=== PATIENT | male | born 1985 | race Caucasian/White ===

== ENCOUNTER → 2024-02-19 14:52 | Outpatient (REF) | payer OTHER, SELFPAY | LOC: RAD 14:52 | PROVIDERS: ATTENDING PHYSICIAN Nurse Practitioner Family | DX: S99.922A Unspecified injury of left foot, initial encounter (principal) | CPT/HCPCS: 73630 ==

== ENCOUNTER → 2024-03-11 10:58 | Outpatient (REF) | payer OTHER, SELFPAY | LOC: RAD 10:58 | PROVIDERS: ATTENDING PHYSICIAN Family Medicine | DX: M54.2 Cervicalgia (principal) | CPT/HCPCS: 72050 ==

== ENCOUNTER 2024-03-30 14:13 | Outpatient (RCR) | payer OTHER, SELFPAY | END 2024-03-30 23:59 | disposition home or self-care (01) | LOC: RPT 14:13 | PROVIDERS: ATTENDING PHYSICIAN Family Medicine | DX: M54.2 Cervicalgia (principal); Z73.6 Limitation of activities due to disability | CPT/HCPCS: 97110; 97112; 97161 ==

== ENCOUNTER 2024-04-28 15:55 | Outpatient (RCR) | payer OTHER, SELFPAY | END 2024-04-28 23:59 | disposition home or self-care (01) | LOC: RPT 15:55 | PROVIDERS: ATTENDING PHYSICIAN Family Medicine | DX: M54.2 Cervicalgia (principal); Z73.6 Limitation of activities due to disability | CPT/HCPCS: 97010; 97110; 97112; 97140 ==

== ENCOUNTER 2024-06-06 11:12 | Emergency (ER) | payer OTHER, SELFPAY ==
[2024-06-06 11:12] VITALS: BMI 33.1
[2024-06-06 11:17] VITALS: BP 101/72
--- NOTE | 2024-06-06 11:28 | ED.GENMED ---
History of Present Illness
<ADALI Lovelace Last Filed: 06/06/24 14:22>
General
Chief Complaint: Musculo-Skeletal Complaint
Source: patient
Exam Limitations: none
Time Seen by Provider: 06/06/24 11:26
Nursing documentation reviewed up to this point in time: agreed with
History of Present Illness
History of Present Illness:
39-year-old male with past medical history UC, eczema, migraines presents emergency department today with concerns of finger amputation. Patient reports that he was working at home cutting wood with a circular saw when he accidentally ran the saw
over his finger. He does not take a blood thinner. His arrives with amputated fingertip on ice. He currently notes severe pain. He did not loose consciousness. He denies any other injuries.
Review of Systems
<ADALI Lovelace Last Filed: 06/06/24 14:22>
Review of Systems
All Other Systems: ROS reviewed and negative except as documented in HPI and ROS
Phy Exam
<ADALI Lovelace Last Filed: 06/06/24 14:22>
Physical Exam
Physical Exam:
General: Patient is well appearing and in no acute distress; non-toxic
Skin: Laceration/avulsion noted to right index finger
Head: Normocephalic, atraumatic
Eyes: Sclera non-icteric. EOMs intact.
Cardiac: Regular rate
Pulm: Normal respiratory effort
Musculoskeletal: Fingertip amputation just proximal to dip of right index finger.
Neuro: CN II-XII intact, no focal neurologic deficits.
Psychiatric: Appropriate mood and affect.
Course
<ADALI Lovelace Last Filed: 06/06/24 14:22>
Orders/Labs/Results
Orders:
Orders
06/06/24 11:27
0.9% Sodium Chloride 500 ml [Nss] 500 ml IV BOLUS
HYDROmorphone [Dilaudid] 0.5 mg IV NOW STA
Ondansetron Injectable [Zofran] 4 mg IV NOW STA
06/06/24 11:33
CR Finger(s)/thumb Min 2 Vw Rt Stat
Comment: Portable
Reason For Exam: injury/amputation to R index finger
Indicate Which Finger:: Index Finger
06/06/24 12:42
HYDROmorphone [Dilaudid] 1 mg IV NOW STA
06/06/24 12:44
CeFAZolin 2 GRAM [Ancef] 2 grams in 10 ml IV NOW
Vital Signs
Initial and Last Documented VS:
Initial Vital Signs
Temp Pulse Resp BP Pulse Ox
98.0 F 52 20 101/72 97
06/06/24 11:17 06/06/24 11:17 06/06/24 11:17 06/06/24 11:17 06/06/24 11:17
Last Documented Vital Signs
Temp Pulse Resp BP Pulse Ox
98.0 F 73 20 97/81 99
06/06/24 11:17 06/06/24 12:30 06/06/24 11:17 06/06/24 12:00 06/06/24 12:30
<Rah Marie, DO - Last Filed: 06/06/24 13:16>
Orders/Labs/Results
Orders:
Orders
06/06/24 11:27
0.9% Sodium Chloride 500 ml [Nss] 500 ml IV BOLUS
HYDROmorphone [Dilaudid] 0.5 mg IV NOW STA
Ondansetron Injectable [Zofran] 4 mg IV NOW STA
06/06/24 11:33
CR Finger(s)/thumb Min 2 Vw Rt Stat
Comment: Portable
Reason For Exam: injury/amputation to R index finger
Indicate Which Finger:: Index Finger
06/06/24 12:42
HYDROmorphone [Dilaudid] 1 mg IV NOW STA
06/06/24 12:44
CeFAZolin 2 GRAM [Ancef] 2 grams in 10 ml IV NOW
Vital Signs
Initial and Last Documented VS:
Initial Vital Signs
Temp Pulse Resp BP Pulse Ox
98.0 F 52 20 101/72 97
06/06/24 11:17 06/06/24 11:17 06/06/24 11:17 06/06/24 11:17 06/06/24 11:17
Last Documented Vital Signs
Temp Pulse Resp BP Pulse Ox
98.0 F 73 20 97/81 99
06/06/24 11:17 06/06/24 12:30 06/06/24 11:17 06/06/24 12:00 06/06/24 12:30
Joannelt;Swati Carl PA-C - Last Filed: 06/06/24 14:22>
MDM/Problems Addressed
Differential Diagnosis Includes:
phalanx fracture, skin avulsion, finger tip amputation
MDM/Problems Addressed:
39-year-old male with past medical history UC, eczema, migraines presents emergency department today with concerns of finger amputation. On exam, he has amputation just proximal to the DIP right second digit. I spoke to Dr. Mitchell who states that
at this level, no reimplantation is indicated, he recommends putting Xeroform dressing and protective gauze and splint on. Patient and family did want second opinion. Did speak to hand surgeon at [facility] who states that he will not reimplant
something at that level. Family and patient are okay with following up with Dr. Mitchell. Dr. Nino states that they will be able to get patient into the office tomorrow. I did apply a bulky dressing in patient's pain was treated here, he received
2 g of Ancef through the IV. Did send Keflex to the pharmacy. Patient is requesting something stronger at home to use for breakthrough pain. Did discuss benefits and risks of opioids, did send Percocets to his pharmacy. Patient stable for
discharge.
Chronic conditions affecting care:
UC, migraines, eczema
Acute Exacerbation and/or Progression of Chronic Illness:
n/a
<Swati Carl PA-C - Last Filed: 06/06/24 14:22>
*Pulse Oximetry
Patient hypoxic: no
*Critical Care Note
Total Time (30-74mins, 75-104mins- exclusive of procedures): Not Applicable
Data Reviewed
Review of Other/Old Records Reveals: Records (Reviewed [facility], no prior ER physician documentation to review) and Discharge Summary (No discharge summaries in [facility] to review)
Source: patient and records
Prescriptions/Medications Considered But Not Given:
n/a
<Swtai Carl PA-C - Last Filed: 06/06/24 14:22>
Patient Management
Escalation/DeEscalation of care consider admission/obs:
Admit not indicated, patient stable for discharge
ED Attending Note
<ADALI Lovelace Last Filed: 06/06/24 14:22>
-
Portions of this chart may have been created with voice recognition software.� Occasional wrong word or��sound alike� substitutions may have occurred due to the inherent limitations of voice recognition software.
<Rah Marie DO - Last Filed: 06/06/24 13:16>
ED Attending Note
Patient seen and examined by attending physician: Yes
I performed the substantive portion of visit, reviewed & personally made and approve the management plan that is documented in note by myself or SANDRA.: Yes
I performed a history and physical exam of patient and discussed management with resident, I reviewed resident's note and agree with documented findings and plan of care.: Yes
ED Attending Note:
I evaluated the patient at bedside�amputation at and just proximal to the DIP right second digit. He is right-handed. Dr. Mitchell gave recommendations. Also, at family request we also spoke to Y[facility].
Discharge Plan
Departure
Patient Disposition: Home (Routine Discharge)
Date of Disposition: 06/06/24
Time of Disposition: 13:56
Patient with high blood pressure during this ER visit?: No
Condition: Good
Discharge Problem:
Amputation of finger of right hand
Instructions: Amputation of the Finger or Fingertip
Prescriptions:
New
cephalexin 500 mg capsule
500 mg PO QID 5 Days Qty: 20 0RF
oxycodone-acetaminophen [Percocet] 5-325 mg tablet
1 tab PO Q6HPRN PRN (Reason: pain) Qty: 8 0RF
Referrals:
Solomon Moreira MD [Family Provider] -
Silviano Mitchell MD [Active] - Call in 1-3 days for appt
Activity Restrictions/Additional Instructions:
You should receive a call from Dr. Mitchell's office today. Please call the office to confirm your appointment for tomorrow.
The antibiotic has been sent to your pharmacy, you can start taking this tomorrow.
Please take ibuprofen as needed for pain, should you have breakthrough pain, you can take a Percocet.
Please return to the emergency department should you experience fevers or chills, chest pain, shortness of breath, or any other signs or symptoms concerning
Interventions
Interventions:
*Risk Screen - Suicide Last Done: 06/06/24 11:17
*General Assessment Last Done: 06/06/24 11:17
*Neglect/Abuse Screening Last Done: 06/06/24 11:17
ED- Fall Risk Assessment Last Done: 06/06/24 11:38
*ED COVID-19 Vaccine History Last Done: 06/06/24 11:17
*Nursing Disposition Last Done: 06/06/24 14:11
ED-Musculoskeletal Assessment Last Done: 06/06/24 11:32
Discharge Date and Time
Discharge Date/Time: 06/06/24 14:12
Print Language: UZBEK
[2024-06-06] MEDS: ZOFRAN 4 MG IV (11:30)
[2024-06-06] MEDS: NSS 500 IV (11:31)
[2024-06-06] MEDS: DILAUDID 0.5 MG IV (11:31)
[2024-06-06 12:00] VITALS: BP 97/81
[2024-06-06] MEDS: ANCEF 10 IV (12:49)
[2024-06-06] MEDS: DILAUDID 1 MG IV (12:49)
== END 2024-06-06 14:12 | disposition home or self-care (01) ==
LOC: EMR 11:12
PROVIDERS: EMERGENCY PHYSICIAN Emergency Medicine; FAMILY PHYSICIAN Family Medicine
DX: S68.610A Complete traumatic transphalangeal amputation of right index finger, initial encounter (principal); W31.2XXA Contact with powered woodworking and forming machines, initial encounter; G43.909 Migraine, unspecified, not intractable, without status migrainosus; L30.9 Dermatitis, unspecified
CPT/HCPCS: 96374; 96375; 96376; 96361; 99284; 73140

== ENCOUNTER 2024-07-22 10:11 | Outpatient (RCR) | payer OTHER, SELFPAY | END 2024-07-22 23:59 | disposition home or self-care (01) | LOC: ROT 10:11 | PROVIDERS: ATTENDING PHYSICIAN Orthopaedic Surgery Hand Surgery; FAMILY PHYSICIAN Family Medicine | DX: S68.110D Complete traumatic metacarpophalangeal amputation of right index finger, subsequent encounter (principal); X58.XXXD Exposure to other specified factors, subsequent encounter; Z73.6 Limitation of activities due to disability | CPT/HCPCS: 97010; 97166; 97535 ==

== ENCOUNTER 2024-08-26 16:01 | Outpatient (RCR) | payer OTHER, SELFPAY | END 2024-08-27 07:39 | disposition home or self-care (01) | LOC: ROT 16:01 | PROVIDERS: ATTENDING PHYSICIAN Orthopaedic Surgery Hand Surgery; FAMILY PHYSICIAN Family Medicine | DX: S68.110D Complete traumatic metacarpophalangeal amputation of right index finger, subsequent encounter (principal); X58.XXXD Exposure to other specified factors, subsequent encounter; Z73.6 Limitation of activities due to disability | CPT/HCPCS: 97018; 97022; 97110; 97140 ==

== ENCOUNTER → 2025-06-16 17:16 | Outpatient (REF) | payer OTHER, SELFPAY | LOC: RAD 17:16 | PROVIDERS: ATTENDING PHYSICIAN Family Medicine | DX: M54.50 Low back pain, unspecified (principal) | CPT/HCPCS: 72110 ==

== ENCOUNTER 2025-07-10 10:22 | Emergency (ER) | payer OTHER, SELFPAY ==
[2025-07-10 10:23] VITALS: BP 135/88
[2025-07-10 11:00] VITALS: BMI 33.6
[2025-07-10 11:22] LABS: Hematocrit 39.9 % (39.0-52.0); Hemoglobin 13.9 g/dL (13.0-18.0); Mean Corp Hgb Conc. 34.8 g/dL (33.0-37.0); Mean Corpuscular Volume 82.8 fL (80.0-94.0); Nucleated Red Blood Cells % 0 % (-); Platelet Count 281 10^3/uL (130-400); Red Cell Dist. Width 12.2 % (11.5-14.5)
[2025-07-10 11:36] LABS: ALT (SGPT) 42 U/L (0-50); AST (SGOT) 24 U/L (17-59); Albumin 4.7 g/dl (3.5-5.0); Alkaline Phosphatase 57 U/L (38-126); Blood Urea Nitrogen 10 mg/dl (9-20); Calcium 10.1 mg/dl (8.4-10.2); Carbon Dioxide 30 mmol/L (22-30); Chloride 103 mmol/L (98-107); Estimated Creatinine Clearance > 125 ml/min; Glucose 146 mg/dl (70-99); Potassium 4.6 mmol/L (3.5-5.1); Sodium 138 mmol/L (135-145); Total Protein 8.1 g/dl (6.3-8.2); eGFR > 60.00
[2025-07-10] MEDS: NSS 1000 IV (11:59)
[2025-07-10 12:00] VITALS: BP 128/82
[2025-07-10] MEDS: TORADOL 30 MG IV (12:00)
[2025-07-10 12:21] LABS: Urine Character Clear (Clear)
[2025-07-10 12:32] LABS: Urine White Cell None Seen /HPF (0-5)
--- NOTE | 2025-07-10 12:56 | ED.GENMED ---
History of Present Illness
General
Chief Complaint: Abdominal Pain
Source: patient
Time Seen by Provider: 07/10/25 11:12
Nursing documentation reviewed up to this point in time: agreed with
History of Present Illness
History of Present Illness:
see MDM
Phy Exam
Physical Exam
Physical Exam:
GENERAL: Alert , in no apparent distress, patient looks rather well
EYE: pupils equal and reactive
NECK: Supple
ENT: o/p clr, mmm.
CARDIAC: Regular rate and rhythm .
LUNGS: Clear breath sounds bilaterally, no acute respiratory distress, no wheezes/rales/rhonchi
ABDOMEN: Soft, mild upper abdominal tenderness, no r/g, no cvat, normal bowel sounds
Back: No midline tenderness, no CVA tenderness, full painless range of motion
NEUROLOGICAL: Alert and oriented, no focal neuro deficits
SKIN: Warm and dry, skin intact.
MUSCULOSKELETAL: No edema, well perfused. neg madie's sign
PSYCH: Normal and appropriate interaction.
Course
Orders/Labs/Results
Orders:
Orders
07/10/25 10:58
CBC/With Diff [Complete Blood Count/With Diff] Urgent
Comprehensive Metabolic Panel Urgent
Urinalysis Reflex To Culture Urgent
Date Specimen was Collected: 07/10/25
Time Specimen was Collected: 10:57
Urine Microscopic Reflex Cult Urgent
Urine Culture Urgent
GRAZYNA Source: U
Specimen Description:
Date Specimen was Collected: 07/10/25
Time Specimen was Collected: 10:57
07/10/25 11:48
CT Abd/Pel (IV only)-DH only Urgent
Comment:
Reason For Exam: abd pain, bloody diarrhea, UC
0.9% Sodium Chloride 1000 ml [Nss] 1,000 ml IV BOLUS
Ketorolac [Toradol] 30 mg IV NOW STA
Abnormal Lab Results
12/07/25
10:58
Glucose 146 H mg/dl
(70-99)
Ur Occult Blood Reflex 4+ A
(Negative)
Urine RBC 7-10 A /HPF
(0-2)
Urine Bacteria (Reflex) Many A
(Negative)
Urine Albumin (Reflex) 1+ A
(Neg - Trace)
07/10/25 10:58
07/10/25 10:58
Vital Signs
Initial and Last Documented VS:
Initial Vital Signs
Temp Pulse Resp BP Pulse Ox
36.9 C 93 20 135/88 99
07/10/25 10:23 07/10/25 10:23 07/10/25 10:23 07/10/25 10:23 07/10/25 10:23
Last Documented Vital Signs
Temp Pulse Resp BP Pulse Ox
36.9 C 68 18 128/82 99
07/10/25 10:23 07/10/25 13:42 07/10/25 13:42 07/10/25 13:42 07/10/25 13:42
MDM/Problems Addressed
Differential Diagnosis Includes:
see MDM
MDM/Problems Addressed:
Note:
CHIEF COMPLAINT(S)
Intermittent abdominal and back pain with decreased bowel movements.
HISTORY OF PRESENT ILLNESS
The patient is a 40-year-old male with a history of ulcerative colitis for over 20 years, presenting with intermittent abdominal and back pain for the past six weeks. Initially, the patient experienced testicular discomfort which coincided with a
colitis flare-up, characterized by blood in stool and slight cramping, which had not occurred in approximately eight to ten years. He also experienced muscle cramping and intense back pain during his commute, reaching a severity of ten out of ten,
prompting an emergency visit to [facility]. A contrast CT scan did not reveal any significant findings, and although blood work showed no signs of infection, antibiotics were prescribed for presumed infection in urine.
Recently, the patient reports varying locations of back pain, affecting his mid and lower back and shoulder blades, with certain movements exacerbating discomfort. The back pain sometimes radiates towards the buttocks, described as a 'really good
scratch' sensation. Despite correcting his posture and attending physical therapy for prior neck spasms, the patient continues to experience migratory back pain. Additionally, the patient describes a recent episode with cramping mid-belly pain,
distinct from his usual colitis pain, leading to stress on a potential blockage due to infrequent bowel movements.
The patient attempted self-medication with prednisone (50 mg on two occasions without consultation) to manage his colitis symptoms during stressful events, leading to some relief but noted slowed bowel activity. His last bowel movement was reported
as difficult and infrequent compared to his usual schedule. Blood remains present in the stool, with its appearance sometimes separate from stool or with mucus.
The patient is on Entyvio for ulcerative colitis for eight to ten years. He has a history of imaging showing arthritis in his back, though no specific degeneration or new findings have been detailed. He denies fever and significant radiation down
the legs. The pain is less severe at rest (rated two out of ten) and responds variably to motions such as bending and pressing tasks.
SOCIAL HISTORY
- The patient mentions stress related to a recent court hearing where he had to pull an all-nighter, potentially contributing to his back issues. He works as a teacher, requiring both sedentary sitting and standing.
PHYSICAL EXAM
- Nursing notes reviewed and vital signs reviewed.
- General: The patient is alert and oriented.
- Musculoskeletal: Tenderness in the lower back, especially in areas corresponding to sacrum and near pelvic joints.
- Abdominal: Palpation reveals mild tenderness in the mid-belly.
PROBLEM LIST
- Acute: Abdominal pain, possibly related to colitis flare; Back pain with spasms; Reduced bowel movements and constipation.
- Chronic: Ulcerative colitis.
PLAN
- Blood work to evaluate organ function and inflammation markers.
- Urinalysis to rule out urinary-related issues.
- Imaging, potentially from mid-chest to pelvis, to assess any abdominal pathology.
- Consultation with gastroenterology for further management of ulcerative colitis and consideration of treatment adjustments.
- Due consideration of pain control options with non-sedating medications like Toradol (if patient desires).
- Monitoring bowel movements, encouraging fluid intake, and dietary modifications as necessary.
DIFFERENTIAL DIAGNOSIS
The Differential Diagnosis includes, in no particular order and is not limited to:
1. Ulcerative colitis flare-up
2. Mechanical back pain or strain
3. Sacroiliitis
4. Possible bowel obstruction or ileus
5. Arthritis of the spine (spondyloarthropathy)
6. Renal colic
7. Abdominal aortic aneurysm
8. Muscular spasms or strain
9. Degenerative disc disease
10. Infectious enterocolitis
CARE-UPDATE
07/10/25 - 13:
labs returned normal, with white counts and kidney function within normal limits, and liver enzymes are also unremarkable. However, urine analysis indicated trace microscopic blood present, suggesting the need for a urologist consultation to rule
out any underlying causes. Current CT scan reveals mild colitis with thickening in the descending colon�more indicative of a colitis flare than an infectious cause, pending stool study results. i spoke with [facility] dr. sweeney who recommended:
Tramodol has been prescribed for pain management, being only slightly stronger than [id number] options, as a precaution. There is also a note regarding gallbladder sludge, with advice to monitor for symptoms post-meal that might suggest
gallbladder involvement, though no immediate action is warranted. Physical therapy has been referred for adjunctive management of discomfort; however, it is advised to reassess its benefit following colitis treatment with steroids. Immediate
attention required if symptoms like worsening diarrhea, blood in stool, recurrent vomiting, severe pain, or fever develop. Prescription will be sent to [facility] in [place].
*Pulse Oximetry
SaO2: 99
Oxygen Mode of Delivery: Room air
Patient hypoxic: no (99)
*Critical Care Note
Total Time (30-74mins, 75-104mins- exclusive of procedures): Not Applicable
ED Attending Note
-
Portions of this chart may have been created with voice recognition software.� Occasional wrong word or��sound alike� substitutions may have occurred due to the inherent limitations of voice recognition software.
Discharge Plan
Departure
Patient Disposition: Home (Routine Discharge)
Date of Disposition: 07/10/25
Time of Disposition: 13:07
Patient with high blood pressure during this ER visit?: Yes
Condition: Fair
Covid-19: Not Applicable
Discharge Problem:
Ulcerative colitis
Instructions: Ulcerative colitis in adults
Prescriptions:
New
tramadol 50 mg tablet
50 mg PO Q8H PRN (Reason: Pain) Qty: 12 0RF
No Action
cephalexin 500 mg capsule
500 mg PO QID 5 Days Qty: 20 0RF
oxycodone-acetaminophen [Percocet] 5-325 mg tablet
1 tab PO Q6HPRN PRN (Reason: pain) Qty: 8 0RF
Referrals:
[facility] [Other]
Bo Law MD [Active, Gastroenterology] - Follow up in 2-3 days
Javon Mcnamara MD [Active, Urology] - Follow up in 1 week
Activity Restrictions/Additional Instructions:
You have pain likely from a flare of your ulcerative colitis. I spoke with the GI on-call Dr. Paredes who recommended trying some pain medication like tramadol 2-3 times a day as needed for pain. Make sure to take a stool softener to prevent
constipation. You can also do Tylenol for pain. You had some blood in your urine which should be evaluated by an outpatient urologist, they should do a cystoscopy and make sure that there is no polyps or anything in your bladder that is not
supposed to be there. You can call for an appointment. Additionally your gallbladder did have some sludge or layering stones and there which could cause back pain especially on the right side after eating a fatty meal. Pay attention to this, if
you still have symptoms you may want to consider surgical consultation as an outpatient. Certainly return to the ER for worsening pain or pain not resolving with the pain medication, any fever, vomiting persistently, more severe or bloody diarrhea
or any concerns
Interventions
Interventions:
*Risk Screen - Suicide Last Done: 07/10/25 10:23
*General Assessment Last Done: 07/10/25 10:23
*Neglect/Abuse Screening Last Done: 07/10/25 10:23
*ED COVID-19 Vaccine History Last Done: 07/10/25 11:00
*ED Influenza Vaccine History Last Done: 07/10/25 11:00
[facility] Fall Risk Assessment Tool Last Done: 07/10/25 10:22
*Nursing Disposition Last Done: 07/10/25 13:42
WA-Oxnckz-Mbrmninsfu Assessment Last Done: 07/10/25 11:00
ED-Musculoskeletal Assessment Last Done: 07/10/25 11:00
Discharge Date and Time
Discharge Date/Time: 07/10/25 13:43
Print Language: ROMANIAN
[2025-07-10 13:42] VITALS: BP 128/82
== END 2025-07-10 13:43 | disposition home or self-care (01) ==
LOC: EMR 10:22
PROVIDERS: EMERGENCY PHYSICIAN Emergency Medicine; FAMILY PHYSICIAN Family Medicine
DX: K51.911 Ulcerative colitis, unspecified with rectal bleeding (principal); M19.90 Unspecified osteoarthritis, unspecified site
CPT/HCPCS: 99284; 96374; 96361; 74177; 80053; 81003; 81015; 85025; 87086; Q9967

== ENCOUNTER → 2025-07-13 15:52 | Outpatient (REF) | payer OTHER, SELFPAY | LOC: RAD 15:52 | PROVIDERS: ATTENDING PHYSICIAN Family Medicine | DX: M54.50 Low back pain, unspecified (principal); M41.9 Scoliosis, unspecified | CPT/HCPCS: 72082 ==

== ENCOUNTER 2025-08-01 06:56 | Outpatient (RCR) | payer OTHER, SELFPAY | END 2025-08-01 23:59 | disposition home or self-care (01) | LOC: RPT 06:56 | PROVIDERS: ATTENDING PHYSICIAN Family Medicine; FAMILY PHYSICIAN Family Medicine | DX: M54.51 Vertebrogenic low back pain (principal); Z73.6 Limitation of activities due to disability; M54.6 Pain in thoracic spine | CPT/HCPCS: 97010; 97110; 97112; 97140; 97162; 97530 ==